=== PATIENT | male | born 1955 | race Caucasian/White ===

== ENCOUNTER 2018-03-01 01:35 | Emergency (ER) | payer SELFPAY ==
[~2018-03-01] VITALS: Ht 175.3 cm; Wt 95.3 kg
--- NOTE | 2018-03-01 02:50 | NUR ---
BB FRIEND C/C TRIP AND FALL INTO GLASS DOOR S/P CONSUMING ETOH. HIT L SIDE Of HEAD, -KO, TDAP NOT UP TO DATE. LAC ON L FOREARM, MINOR [place] ON FEET. PT IS AAOX4. AMBULATORY WITH STEADY GAIT NOTED. ACTIVE BLEEDING NOTED ON L FOREARM. SKIN WNL. VSS. RESP EVEN AND UNLABORED. NO S/S OF ACUTE DISTRESS NOTED. 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 PT SAFETY AND COMFORT MEASURES IN PLACE. FAMILY/FRIENDS BEDSIDE. AWAITING MD FOR EVAL.
[2018-03-01] MEDS ORDERED: TDAP [DIPH/PERTUSSIS/TET] 0.5 ML VIAL IM ONE ×2 (03:25→03:30)
[2018-03-01] MEDS ORDERED: LIDOCAINE 1%-EPI 1:100,000 20 ML VIAL ONE (04:59)
--- NOTE | 2018-03-01 05:41 | NUR ---
PT RESTING IN BED WITH NO S/S OF DISTRESS NOTED. PT'S FAMILY/FRIENDS BEDSIDE. VSS. WILL CONTINUE TO MONITOR PT.
--- NOTE | 2018-03-01 06:12 | NUR ---
Patient discharged to home in stable condition. Written and verbal after care instructions given. Patient verbalizes understanding of instruction. VSS UPON DISCHARGE. AMBULATED WITH STEADY GAIT NOTED ACCOMPANIED BY FAMILY/FRIENDS.
[2018-03-01 06:13] VITALS: BP 128/81
== END 2018-03-01 06:15 | disposition home or self-care (01) ==
LOC: ER 01:39
DX: S51.012A Laceration without foreign body of left elbow, initial encounter (principal); S51.812A Laceration without foreign body of left forearm, initial encounter; S00.83XA Contusion of other part of head, initial encounter; I10 Essential (primary) hypertension; F10.10 Alcohol abuse, uncomplicated; Y90.9 Presence of alcohol in blood, level not specified; W01.110A Fall on same level from slipping, tripping and stumbling with subsequent striking against sharp glass, initial encounter; Y93.89 Activity, other specified; Y92.89 Other specified places as the place of occurrence of the external cause; Y99.8 Other external cause status
CPT/HCPCS: 12002; 70450; 73090; 90471; 90715; 99284; A4606; A6402 ×2; J3490; Z7610